=== PATIENT | female | born 1985 | race Two or more races ===

== ENCOUNTER 2019-10-30 10:17 | Inpatient (IN) | payer OTHER ==
[2019-10-30 10:40] VITALS: BMI 25.1
--- NOTE | 2019-10-30 11:04 | HP ---
COWS - Scale Resting Pulse: 0= ME 80 or Below Sweatin= Chills/Flushing Restless Observation: 1= Difficult to Sit Still Pupil Size: 1= Pupils >than Normal Bone or Joint Aches: 2= Severe Diffuse Aches Runny Nose/ Eye Tearin= Nasal Congestion GI Upset > 30mins: 2= Nausea/Diarrhea Tremor Observation: 2= Slight Tremor Visible Yawning Observation: 2= >3x During Session Anxiety or Irritability: 2=Irritable/Anxious Goose Flesh Skin: 0=Smooth Skin COWS Score: 14 CIWA Score - Admission Criteria [facility]ASAS Guidelines: Admission for Medically Managed Detox: Requires at least one of the followin. CIWA greater than 12 2. Seizures within the past 24 hours 3. Delirium tremens within the past 24 hours 4. Hallucinations within the past 24 hours 5. Acute intervention needed for co occurring medical disorder 6. Acute intervention needed for co occurring psychiatric disorder 7. Severe withdrawal that cannot be handled at a lower level of care (continued vomiting, continued diarrhea, abnormal vital signs) requiring intravenous medication and/or fluids 8. Admitting History and Physical - Admission Chief Complaint: i need help to stop using heroin History of Present Illness: this 34 years old female with heroin dependence,seeking detox,withdrawal symptom denied seizure denied syncope gerd last detox 2017 maría Limitations to Obtaining History: No Limitations - Past Medical History Gastrointestinal: Yes: GERD ...LMP: 09/18/19 ...: No - Smoking History Smoking history: Current every day smoker Have you smoked in the past 12 months: Yes Aproximately how many cigarettes per day: 14 - Alcohol/Substance Use Hx Alcohol Use: No History of Substance Use: reports: Heroin - Social History Usual Living Arrangement: Yes: Other (with cousin) Occupation: unemployed History of Recent Travel: No Admission ROS [facility] - [facility] Chief Complaint: i need help to stop using heroin Allergies/Adverse Reactions: Allergies Allergy/AdvReac Type Severity Reaction Status Date / Time No Known Allergies Allergy Verified 10/30/19 10:30 History of Present Illness: this 34 years old female with heroin dependence seeking detox,withdrawal symptom , denied seizure denied syncope nicotine dependence last detox 2017 maría no significant period of sobriety Exam Limitations: No Limitations - Ebola screening Have you traveled outside of the country in the last 21 days: No Have you had contact with anyone from an Ebola affected area: No Do you have a fever: No - Review of Systems Constitutional: Chills, Loss of Appetite, Malaise, Night Sweats, Changes in sleep, Weakness EENT: reports: No Symptoms Reported Respiratory: reports: No Symptoms reported Cardiac: reports: No Symptoms Reported GI: reports: Nausea, Poor Appetite, Abdominal cramping : reports: No Symptoms Reported Musculoskeletal: reports: Back Pain, Muscle Pain Integumentary: reports: Dryness Neuro: reports: Headache, Tremors Endocrine: reports: No Symptoms Reported Hematology: reports: No Symptoms Reported Psychiatric: reports: No Sypmtoms Reported, Judgement Intact, Mood/Affect Appropiate, Orientated x3 Other Systems: Reviewed and Negative Patient History - Patient Medical History Hx Anemia: No Hx Asthma: No Hx Chronic Obstructive Pulmonary Disease (COPD): No Hx Cancer: No Hx Cardiac Disorders: No Hx Congestive Heart Failure: No Hx Hypertension: No Hx Hypercholesterolemia: No Hx Pacemaker: No HX Cerebrovascular Accident: No Hx Seizures: No Hx Dementia: No Hx Liver Disease: No Hx Genitourinary Disorders: No Hx Sexually Transmitted Disorders: No Hx Renal Disease (ESRD): No Hx Thyroid Disease: No Hx Human Immunodeficiency Virus (HIV): No (04/22) Hx Hepatitis C: No Hx Depression: No Hx Suicide Attempt: No Hx Bipolar Disorder: No Hx Schizophrenia: No Other Medical History: no suicidal,no homicidal - Patient Surgical History Past Surgical History: No - PPD History Previous Implant?: Yes Documented Results: Negative w/o proof Implanted On Prior R Admission?: No PPD to be Administered?: Yes - Reproductive History Patient is a Female of Child Bearing Age (11 -55 yrs old): Yes Last Menstrual Period: 09/18/19 Patient : No - Smoking Cessation Smoking history: Current every day smoker Have you smoked in the past 12 months: Yes Aproximately how many cigarettes per day: 14 Cigars Per Day: 0 Hx Chewing Tobacco Use: No Initiated information on smoking cessation: Yes 'Breaking Loose' booklet given: 10/30/19 - Substance & Tx. History Hx Alcohol Use: No Hx Substance Use: Yes Substance Use Type: Heroin Hx Substance Use Treatment: Yes (2017) - Substances abused Heroin Substance route: Smoking Frequency: Daily Amount used: 13-15 bags Age of first use: 32 Date of last use: 10/30/19 Admission Physical Exam BHS - Vital Signs Vital Signs: Vital Signs - 24 hr 10/30/19 10:30 Temperature 97.6 F Pulse Rate 74 Respiratory 20 Rate Blood Pressure 95/63 - Physical General Appearance: Yes: Moderate Distress, Tremorous, Irritable, Sweating, Anxious HEENTM: Yes: Normal ENT Inspection, OSCAR, Pharynx Normal Respiratory: Yes: Within Normal Limits, Lungs Clear, Normal Breath Sounds Neck: Yes: Within Normal Limits, Supple, Trachea in good position Breast: Yes: Breast Exam Deferred Abdominal: Yes: Within Normal Limits, Normal Bowel Sounds, Non Tender, Flat, Soft Genitourinary: Yes: Within Normal Limits Back: Yes: Muscle Spasm Musculoskeletal: Yes: Back pain Extremities: Yes: Tremors Neurological: Yes: personnel interviewer II-XII NML intact, Fully Oriented, Alert, Motor Strength 5/5 Integumentary: Yes: Dry Lymphatic: Yes: Within Normal Limits - Diagnostic (1) Opioid dependence with withdrawal Current Visit: Yes Status: Acute (2) Nicotine dependence Current Visit: Yes Status: Acute (3) Chronic GERD Current Visit: Yes Status: Acute (4) Dehydration Current Visit: Yes Status: Acute Cleared for Admission [facility] - Detox or Rehab [facility] Level of Care: Medically Managed Detox Regimen/Protocol: Methadone Breathalyzer - Breathalyzer Breathalyzer: 0 Urine Drug Screen - Test Device Lot number: [id number] Expiration date: 06/03/21 - Control Is test valid?: Yes - Results Drug screen NEGATIVE: No Urine drug screen results: FEN-Fentanyl, MOP-Opiates, MTD-Methadone Inpatient Rehab Admission - Rehab Decision to Admit Inpatient rehab admission?: No
[2019-10-30] MEDS ORDERED: ACETAMINOPHEN 325 MG TABLET (FP) PO PRN ×2 (11:17)
[2019-10-30] MEDS ORDERED: MAGNESIUM HYDROX 2400MG/30ML ORAL SUSPENSION 30 ML CUP PO PRN (11:17)
[2019-10-30] MEDS ORDERED: IBUPROFEN 400 MG TABLET (FP) PO PRN (11:17)
[2019-10-30] MEDS ORDERED: cloNIDine HCL 0.1 MG TABLET PO PRN (11:17)
[2019-10-30] MEDS ORDERED: METHADONE HCL 10 MG TABLET (FOR DETOX USE ONLY) PO ONE (11:17)
[2019-10-30] MEDS ORDERED: MAGNESIUM CITRATE 300 ML BOTTLE PO PRN (11:17)
[2019-10-30] MEDS ORDERED: MENTHOL/PHENOL 1 EACH UD MM PRN (11:17)
[2019-10-30] MEDS: FAMOTIDINE 20 MG TABLET PO SCH (12:06)
--- NOTE | 2019-10-30 13:26 | EKG ---
Test Reason : Blood Pressure : / mmHG Vent. Rate : 067 BPM Atrial Rate : 067 BPM P-R Int : 140 ms QRS Dur : 066 ms QT Int : 396 ms P-R-T Axes : 027 074 039 degrees QTc Int : 418 ms NORMAL SINUS RHYTHM LOW VOLTAGE QRS NO PREVIOUS ECGS AVAILABLE Confirmed by LIZ ALEXANDRA MD ([id number]) on 10/30/2019 1:25:49 PM Referred By: Confirmed By:LIZ ALEXANDRA MD
[2019-10-30 14:47] LABS: HEMATOCRIT 39.6 % (32.4-45.2); MCH 29.1 pg (25.7-33.7); MCHC 32.9 g/dl (32.0-36.0); MEAN CELL VOLUME 88.4 fl (80-96); MEAN PLT VOLUME 10.1 fl (7.5-11.1); PLATELET COUNT 146 K/MM3 (134-434); RBC 4.48 M/mm3 (3.60-5.2); RDW 14.4 % (11.6-15.6)
[2019-10-30 14:51] LABS: ALBUMIN 3.9 g/dl (3.4-5.0); BILIRUBIN,TOTAL 0.4 mg/dL (0.2-1); CALCIUM 8.8 mg/dL (8.5-10.1); CREATININE 0.6 mg/dL (0.55-1.3); POTASSIUM 4.1 mmol/L (3.5-5.1); TOT PROT 7.3 g/dl (6.4-8.2)
[2019-10-30] MEDS: diazePAM 5 MG TABLET PO PRN ×2 (16:49→22:06)
[2019-10-30] MEDS: THIAMINE HCL 100 MG TABLET (FP) PO SCH (22:07)
[2019-10-30] MEDS: METHOCARBAMOL 500 MG TABLET PO PRN (23:36)
[2019-10-30] MEDS: MAG HYDROX/AL HYDROX/SIMETH 30 ML UNIT-DOSE CUP PO PRN (23:37)
[2019-10-30] MEDS ORDERED: PANTOPRAZOLE 40 MG TABLET PO ONE (23:43)
[2019-10-31] MEDS: diazePAM 5 MG TABLET PO PRN ×4 (03:49→21:46)
[2019-10-31] MEDS ORDERED: METHADONE HCL 10 MG TABLET (FOR DETOX USE ONLY) ONE (08:23)
[2019-10-31] MEDS ORDERED: METHADONE HCL 5 MG TABLET (FOR DETOX USE ONLY) ONE (08:24)
[2019-10-31] MEDS ORDERED: METHADONE (DETOX) 20 MG, METHADONE (DETOX) 5 MG PO ONE (10:00)
[2019-10-31] MEDS: FAMOTIDINE 20 MG TABLET PO SCH (10:17)
[2019-10-31] MEDS: PRENATAL VITAMINS W/ FOLIC ACID TABLET (FP) PO SCH (10:17)
--- NOTE | 2019-10-31 11:24 | PN ---
BHS COWS - Scale Resting Pulse: 0= [place] 80 or Below Sweatin= Beads of Sweat on Face Restless Observation: 1= Difficult to Sit Still Pupil Size: 0= Normal to Room Light Bone or Joint Aches: 2= Severe Diffuse Aches Runny Nose/ Eye Tearin= None GI Upset > 30mins: 0= None Tremor Observation of Outstretched Hands: 0= None Yawning Observation: 1= 1-2x During Session Anxiety or Irritability: 2=Irritable/Anxious Goose Flesh Skin: 0=Smooth Skin COWS Score: 9 S Progress Note (SOAP) Subjective: c/o irritability, anxiety, chills, sweats, and muscle aches. Objective: 10/31/19 11:23 Vital Signs 10/31/19 10/31/19 10/31/19 03:30 06:46 09:21 Temperature 97.7 F Pulse Rate 65 69 Respiratory 18 18 16 Rate Blood Pressure 96/47 L 104/59 L Laboratory Last Values WBC 9.0 K/mm3 (4.0-10.0) 10/30/19 11:35 RBC 4.48 M/mm3 (3.60-5.2) 10/30/19 11:35 Hgb 13.0 GM/dL (10.7-15.3) 10/30/19 11:35 Hct 39.6 % (32.4-45.2) 10/30/19 11:35 MCV 88.4 fl (80-96) 10/30/19 11:35 MCH 29.1 pg (25.7-33.7) 10/30/19 11:35 MCHC 32.9 g/dl (32.0-36.0) 10/30/19 11:35 RDW 14.4 % (11.6-15.6) 10/30/19 11:35 Plt Count 146 K/MM3 (134-434) 10/30/19 11:35 MPV 10.1 fl (7.5-11.1) 10/30/19 11:35 Sodium 138 mmol/L (136-145) 10/30/19 11:35 Potassium 4.1 mmol/L (3.5-5.1) 10/30/19 11:35 Chloride 108 mmol/L (98-107) H 10/30/19 11:35 Carbon Dioxide 25 mmol/L (21-32) 10/30/19 11:35 Anion Gap 6 MMOL/L (8-16) L 10/30/19 11:35 BUN 11.0 mg/dL (7-18) 10/30/19 11:35 Creatinine 0.6 mg/dL (0.55-1.3) 10/30/19 11:35 Est GFR (CKD-EPI)AfAm 139.78 10/30/19 11:35 Est GFR (CKD-EPI)NonAf 120.61 10/30/19 11:35 Random Glucose 86 mg/dL (74-106) 10/30/19 11:35 Calcium 8.8 mg/dL (8.5-10.1) 10/30/19 11:35 Total Bilirubin 0.4 mg/dL (0.2-1) 10/30/19 11:35 AST 20 U/L (15-37) 10/30/19 11:35 ALT 27 U/L (13-61) 10/30/19 11:35 Alkaline Phosphatase 92 U/L (45-117) 10/30/19 11:35 Total Protein 7.3 g/dl (6.4-8.2) 10/30/19 11:35 Albumin 3.9 g/dl (3.4-5.0) 10/30/19 11:35 RPR Titer Nonreactive (NONREACTIVE) 10/30/19 11:35 Labs noted. Assessment: 10/31/19 11:24 AOx3, in no acute respiratory distress. Full rom, ambulating in the unit. Withdrawal symptoms. Plan: continue detox.
[2019-10-31] MEDS ORDERED: FLU VACCINE QUAD 60 MCG/0.5 ML (MDV 19-20) IM ONE (12:00)
[2019-10-31] MEDS: MAG HYDROX/AL HYDROX/SIMETH 30 ML UNIT-DOSE CUP PO PRN (13:19)
[2019-10-31] MEDS: BISMUTH SUBSALICYLATE 524 MG/30 ML UD PO PRN (17:16)
[2019-10-31 17:44] LABS: PH,URINE 7.5 (5.0-8.0); URINE APPEARANCE CLEAR; URINE BILIRUBIN NEGATIVE (NEGATIVE); URINE COLOR YELLOW; URINE GLUCOSE (UA) NEGATIVE (NEGATIVE); URINE KETONE NEGATIVE (NEGATIVE); URINE LEUK ESTERASE NEGATIVE (NEGATIVE); URINE NITRITE NEGATIVE (NEGATIVE); URINE PROTEIN NEGATIVE (NEGATIVE); URINE UROBILINOGEN 0.2 mg/dL (0.2-1.0)
[2019-10-31] MEDS: NICOTINE POLACRILEX 2 MG GUM BUC PRN ×2 (18:59→21:47)
[2019-10-31] MEDS: THIAMINE HCL 100 MG TABLET (FP) PO SCH (21:46)
[2019-10-31] MEDS: MELATONIN 5 MG TABLETS PO PRN (21:47)
[2019-10-31] MEDS: METHOCARBAMOL 500 MG TABLET PO PRN (21:47)
[2019-11-01] MEDS: MELATONIN 5 MG TABLETS PO PRN ×2 (02:07→21:27)
[2019-11-01] MEDS: diazePAM 5 MG TABLET PO PRN ×4 (06:14→19:32)
[2019-11-01] MEDS: NICOTINE POLACRILEX 2 MG GUM BUC PRN ×2 (06:30→08:45)
[2019-11-01] MEDS ORDERED: METHADONE HCL 10 MG TABLET (FOR DETOX USE ONLY) PO ONE (10:00)
[2019-11-01] MEDS: FAMOTIDINE 20 MG TABLET PO SCH ×2 (10:18→21:27)
[2019-11-01] MEDS: PRENATAL VITAMINS W/ FOLIC ACID TABLET (FP) PO SCH (10:18)
[2019-11-01] MEDS: BISMUTH SUBSALICYLATE 524 MG/30 ML UD PO PRN ×2 (11:19→15:52)
[2019-11-01] MEDS ORDERED: LIDOCAINE VISCOUS 2% ORAL/TOP 20 ML UNIT-DOSE CUP MM PRN (11:27)
--- NOTE | 2019-11-01 11:30 | PN ---
BHS COWS - Scale Resting Pulse: 1= [place] 81-100 Sweatin= Chills/Flushing Restless Observation: 0= Sits Still Pupil Size: 1= Pupils >than Normal Bone or Joint Aches: 1= Mild Discomfort Runny Nose/ Eye Tearin= Nasal Congestion GI Upset > 30mins: 1= Stomach Cramp Tremor Observation of Outstretched Hands: 1= Tremor [place], Not Seen Yawning Observation: 0= None Anxiety or Irritability: 1=Feels Anxious/Irritable Goose Flesh Skin: 0=Smooth Skin COWS Score: 8 BHS Progress Note (SOAP) Subjective: 34 years old female admitted on 10/30/19 for opiate withdrawal sx management treating with methadone detox regimen ate breakfast tolerated food and fluid well c/o heart burn increase pepcid to 20 mg po bid c/o tooth ache right and left lower molars partial missing no bleeding no gum swell no trouble chewing food nor swallowing food but "sensitive and discomfort" libocaine MM topic tid prn discuss dental hygiene Objective: 11/01/19 11:33 Vital Signs Temperature 96.8 F L 11/01/19 09:08 Pulse Rate 87 11/01/19 09:08 Respiratory Rate 18 11/01/19 09:08 Blood Pressure 105/71 11/01/19 09:08 O2 Sat by Pulse Oximetry (%) Laboratory Last Values WBC 9.0 K/mm3 (4.0-10.0) 10/30/19 11:35 RBC 4.48 M/mm3 (3.60-5.2) 10/30/19 11:35 Hgb 13.0 GM/dL (10.7-15.3) 10/30/19 11:35 Hct 39.6 % (32.4-45.2) 10/30/19 11:35 MCV 88.4 fl (80-96) 10/30/19 11:35 MCH 29.1 pg (25.7-33.7) 10/30/19 11:35 MCHC 32.9 g/dl (32.0-36.0) 10/30/19 11:35 RDW 14.4 % (11.6-15.6) 10/30/19 11:35 Plt Count 146 K/MM3 (134-434) 10/30/19 11:35 MPV 10.1 fl (7.5-11.1) 10/30/19 11:35 Sodium 138 mmol/L (136-145) 10/30/19 11:35 Potassium 4.1 mmol/L (3.5-5.1) 10/30/19 11:35 Chloride 108 mmol/L (98-107) H 10/30/19 11:35 Carbon Dioxide 25 mmol/L (21-32) 10/30/19 11:35 Anion Gap 6 MMOL/L (8-16) L 10/30/19 11:35 BUN 11.0 mg/dL (7-18) 10/30/19 11:35 Creatinine 0.6 mg/dL (0.55-1.3) 10/30/19 11:35 Est GFR (CKD-EPI)AfAm 139.78 10/30/19 11:35 Est GFR (CKD-EPI)NonAf 120.61 10/30/19 11:35 Random Glucose 86 mg/dL (74-106) 10/30/19 11:35 Calcium 8.8 mg/dL (8.5-10.1) 10/30/19 11:35 Total Bilirubin 0.4 mg/dL (0.2-1) 10/30/19 11:35 AST 20 U/L (15-37) 10/30/19 11:35 ALT 27 U/L (13-61) 10/30/19 11:35 Alkaline Phosphatase 92 U/L (45-117) 10/30/19 11:35 Total Protein 7.3 g/dl (6.4-8.2) 10/30/19 11:35 Albumin 3.9 g/dl (3.4-5.0) 10/30/19 11:35 Urine Color Yellow 10/31/19 11:26 Urine Appearance Clear 10/31/19 11:26 Urine pH 7.5 (5.0-8.0) 10/31/19 11:26 Ur Specific [place] 1.005 (1.010-1.035) L 10/31/19 11:26 Urine Protein Negative (NEGATIVE) 10/31/19 11:26 Urine Glucose (UA) Negative (NEGATIVE) 10/31/19 11:26 Urine Ketones Negative (NEGATIVE) 10/31/19 11:26 Urine Blood Negative (NEGATIVE) 10/31/19 11:26 Urine Nitrite Negative (NEGATIVE) 10/31/19 11:26 Urine Bilirubin Negative (NEGATIVE) 10/31/19 11:26 Urine Urobilinogen 0.2 mg/dL (0.2-1.0) 10/31/19 11:26 Ur Leukocyte Esterase Negative (NEGATIVE) 10/31/19 11:26 POC Urine HCG, Qual Negative 10/30/19 11:26 RPR Titer Nonreactive (NONREACTIVE) 10/30/19 11:35 lab noted Assessment: 11/01/19 11:33 opiate withdrawal Plan: methadone regimen encourage 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
[2019-11-01] MEDS: NICOTINE 21 MG/24 HOURS TOPICAL PATCH TD SCH (12:25)
[2019-11-01] MEDS: THIAMINE HCL 100 MG TABLET (FP) PO SCH (21:26)
[2019-11-01] MEDS: hydrOXYzine PAMOATE 25 MG CAPSULE (FP) PO PRN (21:28)
[2019-11-02] MEDS: METHOCARBAMOL 500 MG TABLET PO PRN ×2 (00:04→15:25)
[2019-11-02] MEDS: diazePAM 5 MG TABLET PO PRN ×3 (00:04→09:45)
[2019-11-02] MEDS ORDERED: METHADONE HCL 5 MG TABLET (FOR DETOX USE ONLY) ONE (09:22)
[2019-11-02] MEDS ORDERED: METHADONE HCL 10 MG TABLET (FOR DETOX USE ONLY) ONE (09:22)
[2019-11-02] MEDS: MAG HYDROX/AL HYDROX/SIMETH 30 ML UNIT-DOSE CUP PO PRN ×2 (09:52→20:58)
[2019-11-02] MEDS ORDERED: METHADONE (DETOX) 10 MG, METHADONE (DETOX) 5 MG PO ONE (10:00)
[2019-11-02] MEDS: PRENATAL VITAMINS W/ FOLIC ACID TABLET (FP) PO SCH (10:08)
[2019-11-02] MEDS: FAMOTIDINE 20 MG TABLET PO SCH ×2 (10:09→22:11)
[2019-11-02] MEDS: NICOTINE 21 MG/24 HOURS TOPICAL PATCH TD SCH (10:11)
--- NOTE | 2019-11-02 11:50 | PN ---
BHS COWS - Scale Resting Pulse: 0= [place] 80 or Below Sweatin= Chills/Flushing Restless Observation: 0= Sits Still Pupil Size: 1= Pupils >than Normal Bone or Joint Aches: 1= Mild Discomfort Runny Nose/ Eye Tearin= Nasal Congestion GI Upset > 30mins: 1= Stomach Cramp Tremor Observation of Outstretched Hands: 1= Tremor [place], Not Seen Yawning Observation: 0= None Anxiety or Irritability: 1=Feels Anxious/Irritable Goose Flesh Skin: 0=Smooth Skin COWS Score: 7 BHS Progress Note (SOAP) Subjective: 34 years old female admitted on 10/30/19 for opiate withdrawal sx management treating with methadone detox regimen ate breakfast no trouble chewing swallowing food tolerated food and fluid well GERD feeling better ensure supplement limited conversation with staff encourage pickler helper narcan from pharmacy Objective: 11/02/19 11:52 Vital Signs Temperature 98.2 F 11/02/19 09:06 Pulse Rate 73 11/02/19 09:06 Respiratory Rate 18 11/02/19 09:06 Blood Pressure 93/59 L 11/02/19 09:06 O2 Sat by Pulse Oximetry (%) Laboratory Last Values WBC 9.0 K/mm3 (4.0-10.0) 10/30/19 11:35 RBC 4.48 M/mm3 (3.60-5.2) 10/30/19 11:35 Hgb 13.0 GM/dL (10.7-15.3) 10/30/19 11:35 Hct 39.6 % (32.4-45.2) 10/30/19 11:35 MCV 88.4 fl (80-96) 10/30/19 11:35 MCH 29.1 pg (25.7-33.7) 10/30/19 11:35 MCHC 32.9 g/dl (32.0-36.0) 10/30/19 11:35 RDW 14.4 % (11.6-15.6) 10/30/19 11:35 Plt Count 146 K/MM3 (134-434) 10/30/19 11:35 MPV 10.1 fl (7.5-11.1) 10/30/19 11:35 Sodium 138 mmol/L (136-145) 10/30/19 11:35 Potassium 4.1 mmol/L (3.5-5.1) 10/30/19 11:35 Chloride 108 mmol/L (98-107) H 10/30/19 11:35 Carbon Dioxide 25 mmol/L (21-32) 10/30/19 11:35 Anion Gap 6 MMOL/L (8-16) L 10/30/19 11:35 BUN 11.0 mg/dL (7-18) 10/30/19 11:35 Creatinine 0.6 mg/dL (0.55-1.3) 10/30/19 11:35 Est GFR (CKD-EPI)AfAm 139.78 10/30/19 11:35 Est GFR (CKD-EPI)NonAf 120.61 10/30/19 11:35 Random Glucose 86 mg/dL (74-106) 10/30/19 11:35 Calcium 8.8 mg/dL (8.5-10.1) 10/30/19 11:35 Total Bilirubin 0.4 mg/dL (0.2-1) 10/30/19 11:35 AST 20 U/L (15-37) 10/30/19 11:35 ALT 27 U/L (13-61) 10/30/19 11:35 Alkaline Phosphatase 92 U/L (45-117) 10/30/19 11:35 Total Protein 7.3 g/dl (6.4-8.2) 10/30/19 11:35 Albumin 3.9 g/dl (3.4-5.0) 10/30/19 11:35 Urine Color Yellow 10/31/19 11:26 Urine Appearance Clear 10/31/19 11:26 Urine pH 7.5 (5.0-8.0) 10/31/19 11:26 Ur Specific [place] 1.005 (1.010-1.035) L 10/31/19 11:26 Urine Protein Negative (NEGATIVE) 10/31/19 11:26 Urine Glucose (UA) Negative (NEGATIVE) 10/31/19 11:26 Urine Ketones Negative (NEGATIVE) 10/31/19 11:26 Urine Blood Negative (NEGATIVE) 10/31/19 11:26 Urine Nitrite Negative (NEGATIVE) 10/31/19 11:26 Urine Bilirubin Negative (NEGATIVE) 10/31/19 11:26 Urine Urobilinogen 0.2 mg/dL (0.2-1.0) 10/31/19 11:26 Ur Leukocyte Esterase Negative (NEGATIVE) 10/31/19 11:26 POC Urine HCG, Qual Negative 10/30/19 11:26 RPR Titer Nonreactive (NONREACTIVE) 10/30/19 11:35 lab noted encourage oral fluid Assessment: 11/02/19 11:52 opiate withdrawal Plan: methadone regimen
[2019-11-02] MEDS: hydrOXYzine PAMOATE 25 MG CAPSULE (FP) PO PRN (15:25)
[2019-11-02] MEDS: NICOTINE POLACRILEX 2 MG GUM BUC PRN ×2 (19:49→22:59)
[2019-11-02] MEDS: THIAMINE HCL 100 MG TABLET (FP) PO SCH (22:12)
[2019-11-02] MEDS: MELATONIN 5 MG TABLETS PO PRN (22:12)
[2019-11-03] MEDS: hydrOXYzine PAMOATE 25 MG CAPSULE (FP) PO PRN ×3 (01:27→17:03)
[2019-11-03] MEDS: METHOCARBAMOL 500 MG TABLET PO PRN (01:27)
--- NOTE | 2019-11-03 09:39 | PN ---
BHS COWS - Scale Resting Pulse: 0= [place] 80 or Below Sweatin= Chills/Flushing Restless Observation: 0= Sits Still Pupil Size: 0= Normal to Room Light Bone or Joint Aches: 1= Mild Discomfort Runny Nose/ Eye Tearin= None GI Upset > 30mins: 1= Stomach Cramp Tremor Observation of Outstretched Hands: 1= Tremor [place], Not Seen Yawning Observation: 0= None Anxiety or Irritability: 1=Feels Anxious/Irritable Goose Flesh Skin: 0=Smooth Skin COWS Score: 5 BHS Progress Note (SOAP) Subjective: 34 years old female admitted on 10/30/19 for opiate withdrawal sx management treating with methadone detox regimen slept through the night feeling better discussed medication assisted treatment program encourage picking up narcan from pharmacy Objective: 11/03/19 09:38 Vital Signs Temperature 97.8 F 11/03/19 09:10 Pulse Rate 72 11/03/19 09:10 Respiratory Rate 18 11/03/19 09:10 Blood Pressure 90/61 11/03/19 09:10 O2 Sat by Pulse Oximetry (%) Laboratory Last Values WBC 9.0 K/mm3 (4.0-10.0) 10/30/19 11:35 RBC 4.48 M/mm3 (3.60-5.2) 10/30/19 11:35 Hgb 13.0 GM/dL (10.7-15.3) 10/30/19 11:35 Hct 39.6 % (32.4-45.2) 10/30/19 11:35 MCV 88.4 fl (80-96) 10/30/19 11:35 MCH 29.1 pg (25.7-33.7) 10/30/19 11:35 MCHC 32.9 g/dl (32.0-36.0) 10/30/19 11:35 RDW 14.4 % (11.6-15.6) 10/30/19 11:35 Plt Count 146 K/MM3 (134-434) 10/30/19 11:35 MPV 10.1 fl (7.5-11.1) 10/30/19 11:35 Sodium 138 mmol/L (136-145) 10/30/19 11:35 Potassium 4.1 mmol/L (3.5-5.1) 10/30/19 11:35 Chloride 108 mmol/L (98-107) H 10/30/19 11:35 Carbon Dioxide 25 mmol/L (21-32) 10/30/19 11:35 Anion Gap 6 MMOL/L (8-16) L 10/30/19 11:35 BUN 11.0 mg/dL (7-18) 10/30/19 11:35 Creatinine 0.6 mg/dL (0.55-1.3) 10/30/19 11:35 Est GFR (CKD-EPI)AfAm 139.78 10/30/19 11:35 Est GFR (CKD-EPI)NonAf 120.61 10/30/19 11:35 Random Glucose 86 mg/dL (74-106) 10/30/19 11:35 Calcium 8.8 mg/dL (8.5-10.1) 10/30/19 11:35 Total Bilirubin 0.4 mg/dL (0.2-1) 10/30/19 11:35 AST 20 U/L (15-37) 10/30/19 11:35 ALT 27 U/L (13-61) 10/30/19 11:35 Alkaline Phosphatase 92 U/L (45-117) 10/30/19 11:35 Total Protein 7.3 g/dl (6.4-8.2) 10/30/19 11:35 Albumin 3.9 g/dl (3.4-5.0) 10/30/19 11:35 Urine Color Yellow 10/31/19 11:26 Urine Appearance Clear 10/31/19 11:26 Urine pH 7.5 (5.0-8.0) 10/31/19 11:26 Ur Specific [place] 1.005 (1.010-1.035) L 10/31/19 11:26 Urine Protein Negative (NEGATIVE) 10/31/19 11:26 Urine Glucose (UA) Negative (NEGATIVE) 10/31/19 11:26 Urine Ketones Negative (NEGATIVE) 10/31/19 11:26 Urine Blood Negative (NEGATIVE) 10/31/19 11:26 Urine Nitrite Negative (NEGATIVE) 10/31/19 11:26 Urine Bilirubin Negative (NEGATIVE) 10/31/19 11:26 Urine Urobilinogen 0.2 mg/dL (0.2-1.0) 10/31/19 11:26 Ur Leukocyte Esterase Negative (NEGATIVE) 10/31/19 11:26 POC Urine HCG, Qual Negative 10/30/19 10:52 RPR Titer Nonreactive (NONREACTIVE) 10/30/19 11:35 lab noted Assessment: 11/03/19 09:38 opiate withdrawal Plan: methadone regimen
[2019-11-03] MEDS ORDERED: METHADONE HCL 10 MG TABLET (FOR DETOX USE ONLY) PO ONE (10:00)
[2019-11-03] MEDS: NICOTINE 21 MG/24 HOURS TOPICAL PATCH TD SCH (10:15)
[2019-11-03] MEDS: FAMOTIDINE 20 MG TABLET PO SCH ×2 (10:15→22:17)
[2019-11-03] MEDS: PRENATAL VITAMINS W/ FOLIC ACID TABLET (FP) PO SCH (10:15)
[2019-11-03] MEDS: MAG HYDROX/AL HYDROX/SIMETH 30 ML UNIT-DOSE CUP PO PRN (13:13)
[2019-11-03] MEDS: NICOTINE POLACRILEX 2 MG GUM BUC PRN ×2 (13:14→22:19)
[2019-11-03] MEDS ORDERED: SULFAMETHOXAZOLE/TRIMETHOPRIM 800MG/160MG D.S. TABLET PO ONE (17:39)
--- NOTE | 2019-11-03 17:42 | PN ---
BHS Progress Note Note: Ucx- pos for Ecoli. Pt c/o of dysuria. Vital Signs - 24 hr 11/02/19 11/03/19 11/03/19 22:04 00:30 03:30 Temperature 96.4 F L Pulse Rate 73 Respiratory 16 18 16 Rate Blood Pressure 92/61 11/03/19 11/03/19 11/03/19 06:06 09:10 13:07 Temperature 97.8 F 97.8 F 98.7 F Pulse Rate 59 L 72 83 Respiratory 18 18 18 Rate Blood Pressure 90/51 L 90/61 90/57 L 11/03/19 17:27 Temperature 98.3 F Pulse Rate 88 Respiratory 18 Rate Blood Pressure 104/64 a/p: UTI- start treatment with bactrim- discharge meds for 5 more days OUD- d/w pt importance of exterminator helper MAT- suboxone/methadone. f/u [facility] or [facility] PCP
[2019-11-03] MEDS: THIAMINE HCL 100 MG TABLET (FP) PO SCH (22:16)
[2019-11-03] MEDS: SULFAMETHOXAZOLE/TRIMETHOPRIM 800MG/160MG D.S. TABLET PO SCH (22:17)
[2019-11-03] MEDS: MELATONIN 5 MG TABLETS PO PRN (22:17)
[2019-11-04] MEDS: hydrOXYzine PAMOATE 25 MG CAPSULE (FP) PO PRN (02:33)
[2019-11-04] MEDS: METHOCARBAMOL 500 MG TABLET PO PRN (02:33)
[2019-11-04] MEDS ORDERED: METHADONE HCL 5 MG TABLET (FOR DETOX USE ONLY) PO ONE (06:00)
[2019-11-04 06:41] VITALS: BP 96/61; PULSE 63; TEMP 97.2
[2019-11-04] MEDS: SULFAMETHOXAZOLE/TRIMETHOPRIM 800MG/160MG D.S. TABLET PO SCH (09:17)
[2019-11-04] MEDS: NICOTINE 21 MG/24 HOURS TOPICAL PATCH TD SCH (09:17)
[2019-11-04] MEDS: PRENATAL VITAMINS W/ FOLIC ACID TABLET (FP) PO SCH (09:17)
[2019-11-04] MEDS: FAMOTIDINE 20 MG TABLET PO SCH (09:17)
--- NOTE | 2019-11-04 12:31 | DS ---
[facility] Detox Discharge Summary Admission Date: 10/30/19 Discharge Date: 11/04/19 - History Present History: Opioid Dependence Additional Comments: 34 years old female admitted on 10/30/19 for opiate withdrawal sx management treated with methadone detox regimen patient tolerated well alert oriented x 3 cardiac s1s2 regular rate rhyth respiratory clear lungs bilaterally on auscultation extremities full range of motion - Physical Exam Results Vital Signs: Vital Signs Temperature 97.2 F L 11/04/19 06:40 Pulse Rate 63 11/04/19 06:40 Respiratory Rate 18 11/04/19 06:40 Blood Pressure 96/61 11/04/19 06:40 O2 Sat by Pulse Oximetry (%) Pertinent Admission Physical Exam Findings: opiate withdrawal Laboratory Last Values WBC 9.0 K/mm3 (4.0-10.0) 10/30/19 11:35 RBC 4.48 M/mm3 (3.60-5.2) 10/30/19 11:35 Hgb 13.0 GM/dL (10.7-15.3) 10/30/19 11:35 Hct 39.6 % (32.4-45.2) 10/30/19 11:35 MCV 88.4 fl (80-96) 10/30/19 11:35 MCH 29.1 pg (25.7-33.7) 10/30/19 11:35 MCHC 32.9 g/dl (32.0-36.0) 10/30/19 11:35 RDW 14.4 % (11.6-15.6) 10/30/19 11:35 Plt Count 146 K/MM3 (134-434) 10/30/19 11:35 MPV 10.1 fl (7.5-11.1) 10/30/19 11:35 Sodium 138 mmol/L (136-145) 10/30/19 11:35 Potassium 4.1 mmol/L (3.5-5.1) 10/30/19 11:35 Chloride 108 mmol/L (98-107) H 10/30/19 11:35 Carbon Dioxide 25 mmol/L (21-32) 10/30/19 11:35 Anion Gap 6 MMOL/L (8-16) L 10/30/19 11:35 BUN 11.0 mg/dL (7-18) 10/30/19 11:35 Creatinine 0.6 mg/dL (0.55-1.3) 10/30/19 11:35 Est GFR (CKD-EPI)AfAm 139.78 10/30/19 11:35 Est GFR (CKD-EPI)NonAf 120.61 10/30/19 11:35 Random Glucose 86 mg/dL (74-106) 10/30/19 11:35 Calcium 8.8 mg/dL (8.5-10.1) 10/30/19 11:35 Total Bilirubin 0.4 mg/dL (0.2-1) 10/30/19 11:35 AST 20 U/L (15-37) 10/30/19 11:35 ALT 27 U/L (13-61) 10/30/19 11:35 Alkaline Phosphatase 92 U/L (45-117) 10/30/19 11:35 Total Protein 7.3 g/dl (6.4-8.2) 10/30/19 11:35 Albumin 3.9 g/dl (3.4-5.0) 10/30/19 11:35 Urine Color Yellow 10/31/19 11:26 Urine Appearance Clear 10/31/19 11:26 Urine pH 7.5 (5.0-8.0) 10/31/19 11:26 Ur Specific [place] 1.005 (1.010-1.035) L 10/31/19 11:26 Urine Protein Negative (NEGATIVE) 10/31/19 11:26 Urine Glucose (UA) Negative (NEGATIVE) 10/31/19 11:26 Urine Ketones Negative (NEGATIVE) 10/31/19 11:26 Urine Blood Negative (NEGATIVE) 10/31/19 11:26 Urine Nitrite Negative (NEGATIVE) 10/31/19 11:26 Urine Bilirubin Negative (NEGATIVE) 10/31/19 11:26 Urine Urobilinogen 0.2 mg/dL (0.2-1.0) 10/31/19 11:26 Ur Leukocyte Esterase Negative (NEGATIVE) 10/31/19 11:26 POC Urine HCG, Qual Negative 10/30/19 10:52 RPR Titer Nonreactive (NONREACTIVE) 10/30/19 11:35 lab noted - Treatment Hospital Course: Detox Protocol Followed, Detoxed Safely, Responded well, Discharged Condition Good, Rehab Referral Accepted Patient has Accepted a Rehab Referral to: medication assised treatment program - Medication Discharge Medications: Ambulatory Orders Omeprazole 20 mg PO DAILY 10/30/19 Naloxone HCl [Narcan] 4 mg NS ASDIR PRN #1 spray 11/01/19 Sulfamethoxazole/Trimethoprim [Bactrim DS -] 1 each PO BID 5 Days #10 tablet - Diagnosis (1) Chronic GERD Status: Chronic (2) Nicotine dependence Status: Acute Qualifiers: Nicotine product type: cigarettes Substance use status: in withdrawal Qualified Code(s): F17.213 - Nicotine dependence, cigarettes, with withdrawal (3) Opioid dependence with withdrawal Status: Acute - AMA Did Patient Leave Against Medical Advice: No COWS (PN) - Opiate Withdrawal Resting Pulse: 0= [place] 80 or Below Sweatin= No chills or Flushing Restless Observation: 0= Sits Still Pupil Size: 0= Normal to Room Light Bone or Joint Aches: 1= Mild Discomfort Runny Nose/ Eye Tearin= None GI Upset > 30mins: 0= None Tremor Observation of Outstretched Hands: 0= None Yawning Observation: 0= None Anxiety or Irritability: 1=Feels Anxious/Irritable Goose Flesh Skin: 0=Smooth Skin COWS Score: 2
== END 2019-11-04 09:18 | disposition home or self-care (01) | DRG 773 ==
LOC: YASAS 10:17 → Y3N 11:25
PROVIDERS: ADMIT Allergy & Immunology; ATTEND Allergy & Immunology
PROC: HZ2ZZZZ Detoxification Services for Substance Abuse Treatment (ICD-10-PCS; principal; 2019-10-30)
DX: F11.23 Opioid dependence with withdrawal (principal); F17.213 Nicotine dependence, cigarettes, with withdrawal; K21.9 Gastro-esophageal reflux disease without esophagitis; N39.0 Urinary tract infection, site not specified; E86.0 Dehydration; K08.89 Other specified disorders of teeth and supporting structures
CPT/HCPCS: 36415; 80053; 81003; 81025; 85027; 86593; 87086; 87186; 93005; 93010; G0008; Q2036

== ENCOUNTER 2019-11-17 11:21 | Inpatient (IN) | payer OTHER ==
[2019-11-17 12:06] VITALS: BMI 23.6
--- NOTE | 2019-11-17 14:35 | HP ---
"COWS - Scale Resting Pulse: 1= [place] 81-100 Sweatin=Flushed/Facial Moisture Restless Observation: 3= Extraneous Movement Pupil Size: 0= Normal to Room Light Bone or Joint Aches: 0= None Runny Nose/ Eye Tearin= Nasal Congestion GI Upset > 30mins: 1= Stomach Cramp Tremor Observation: 0= None Yawning Observation: 0= None Anxiety or Irritability: 2=Irritable/Anxious Goose Flesh Skin: 0=Smooth Skin COWS Score: 10 CIWA Score - Admission Criteria OASAS Guidelines: Admission for Medically Managed Detox: Requires at least one of the followin. CIWA greater than 12 2. Seizures within the past 24 hours 3. Delirium tremens within the past 24 hours 4. Hallucinations within the past 24 hours 5. Acute intervention needed for co occurring medical disorder 6. Acute intervention needed for co occurring psychiatric disorder 7. Severe withdrawal that cannot be handled at a lower level of care (continued vomiting, continued diarrhea, abnormal vital signs) requiring intravenous medication and/or fluids 8. Admitting History and Physical - Past Medical History Gastrointestinal: Yes: GERD ...LMP: 09/18/19 - Smoking History Smoking history: Current every day smoker Have you smoked in the past 12 months: Yes Aproximately how many cigarettes per day: 14 - Alcohol/Substance Use Hx Alcohol Use: No History of Substance Use: reports: Heroin - Social History Occupation: unemployed History of Recent Travel: No Admission [facility] Allergies/Adverse Reactions: Allergies Allergy/AdvReac Type Severity Reaction Status Date / Time No Known Allergies Allergy Verified 11/17/19 11:54 History of Present Illness: Search Terms: most jackson, 1985 Search Date: 11/17/2019 02:29:22 PM The Drug Utilization Report below displays all of the controlled substance prescriptions, if any, that your patient has filled in the last twelve months. The information displayed on this report is compiled from pharmacy submissions to the Department, and accurately reflects the information as submitted by the pharmacies. This report was requested by: June Howard | Reference #: [id number] There are no results for the search terms that you entered. pt here requesting detox from heroin use , reports 12-15 bags/day via smoking , denies OD , reports x 1.5 yrs , latest use today . denies MMTP PMHX : denies PSHX : denies LMP 3 days ago Exam Limitations: No Limitations - Ebola screening Have you traveled outside of the country in the last 21 days: No (NN) Have you had contact with anyone from an Ebola affected area: No Do you have a fever: No - Review of Systems Constitutional: Loss of Appetite EENT: reports: No Symptoms Reported Respiratory: reports: SOB with Exertion (with heroin use) Cardiac: reports: No Symptoms Reported GI: reports: Poor Appetite : reports: No Symptoms Reported Musculoskeletal: reports: No Symptoms Reported Integumentary: reports: No Symptoms Reported Neuro: reports: Headache Endocrine: reports: No Symptoms Reported Psychiatric: reports: Agitated, Anxious Patient History - Patient Medical History Hx Anemia: No Hx Asthma: No Hx Chronic Obstructive Pulmonary Disease (COPD): No Hx Cancer: No Hx Cardiac Disorders: No Hx Congestive Heart Failure: No Hx Hypertension: No Hx Hypercholesterolemia: No Hx Pacemaker: No HX Cerebrovascular Accident: No Hx Seizures: No Hx Dementia: No Hx Diabetes: No Hx Gastrointestinal Disorders: No Hx Liver Disease: No Hx Genitourinary Disorders: No Hx Sexually Transmitted Disorders: No Hx Renal Disease (ESRD): No Hx Thyroid Disease: No Hx Human Immunodeficiency Virus (HIV): No (04/22) Hx Hepatitis C: No Hx Depression: No Hx Suicide Attempt: No Hx Bipolar Disorder: No Hx Schizophrenia: No - Patient Surgical History Past Surgical History: No - PPD History Date: 11/01/19 - Reproductive History Last Menstrual Period: 09/18/19 - Smoking Cessation Smoking history: Current every day smoker Have you smoked in the past 12 months: Yes Aproximately how many cigarettes per day: 14 Cigars Per Day: 0 Hx Chewing Tobacco Use: No Initiated information on smoking cessation: No - Substances abused Heroin Substance route: Smoking Frequency: Daily Amount used: 10-12 bags Age of first use: 32 Date of last use: 11/17/19 Admission Physical Exam BHS - Vital Signs Vital Signs: Vital Signs - 24 hr 11/17/19 11:54 Temperature 98.8 F Pulse Rate 89 Respiratory 20 Rate Blood Pressure 129/87 - Physical General Appearance: Yes: Mild Distress, Anxious HEENTM: Yes: EOMI, Hearing grossly Normal, Normocephalic, Normal Voice Respiratory: Yes: Chest Non-Tender, Lungs Clear, Normal Breath Sounds, No Respiratory Distress, No Accessory Muscle Use Neck: Yes: No masses,lesions,Nodules, Trachea in good position Cardiology: Yes: Regular Rhythm, Regular Rate, S1, S2, Other (QTC 418 ms on ) Abdominal: Yes: Non Tender, Soft Back: Yes: Normal Inspection Musculoskeletal: Yes: Gait Steady Extremities: Yes: Normal Range of Motion, Non-Tender Neurological: Yes: Fully Oriented, Alert, Motor Strength 5/5, Depressed Affect Integumentary: Yes: Warm - Diagnostic (1) Nicotine dependence Current Visit: Yes Status: Chronic Qualifiers: Nicotine product type: cigarettes (2) Opioid dependence with withdrawal Current Visit: Yes Status: Chronic Breathalyzer - Breathalyzer Breathalyzer: 0 Urine Drug Screen - Test Device Lot number: [id number] Expiration date: 06/03/21 - Control Is test valid?: Yes - Results Drug screen NEGATIVE: No Urine drug screen results: FEN-Fentanyl, MOP-Opiates, MTD-Methadone, BZO- Benzodiazepines Inpatient Rehab Admission - Rehab Decision to Admit Inpatient rehab admission?: No"
[2019-11-17] MEDS ORDERED: IBUPROFEN 400 MG TABLET (FP) PO PRN (14:54)
[2019-11-17] MEDS ORDERED: MENTHOL/PHENOL 1 EACH UD MM PRN (14:54)
[2019-11-17] MEDS ORDERED: BISMUTH SUBSALICYLATE 524 MG/30 ML UD PO PRN (14:54)
[2019-11-17] MEDS ORDERED: MAGNESIUM HYDROX 2400MG/30ML ORAL SUSPENSION 30 ML CUP PO PRN (14:54)
[2019-11-17] MEDS ORDERED: ACETAMINOPHEN 325 MG TABLET (FP) PO PRN ×2 (14:54)
[2019-11-17] MEDS ORDERED: MAGNESIUM CITRATE 300 ML BOTTLE PO PRN (14:54)
[2019-11-17] MEDS ORDERED: cloNIDine HCL 0.1 MG TABLET PO PRN (14:55)
[2019-11-17] MEDS: hydrOXYzine PAMOATE 25 MG CAPSULE (FP) PO PRN (15:56)
[2019-11-17] MEDS ORDERED: METHADONE HCL 10 MG TABLET (FOR DETOX USE ONLY) PO ONE (18:00)
[2019-11-17] MEDS: MELATONIN 5 MG TABLETS PO PRN (21:46)
[2019-11-17] MEDS: THIAMINE HCL 100 MG TABLET (FP) PO SCH (21:47)
[2019-11-18] MEDS: hydrOXYzine PAMOATE 25 MG CAPSULE (FP) PO PRN (04:35)
[2019-11-18] MEDS: MAG HYDROX/AL HYDROX/SIMETH 30 ML UNIT-DOSE CUP PO PRN ×2 (09:00→17:32)
[2019-11-18] MEDS ORDERED: METHADONE HCL 5 MG TABLET (FOR DETOX USE ONLY) PO ONE (10:00)
[2019-11-18] MEDS: PANTOPRAZOLE 20 MG TABLET PO SCH (10:28)
[2019-11-18] MEDS: PRENATAL VITAMINS W/ FOLIC ACID TABLET (FP) PO SCH (10:28)
--- NOTE | 2019-11-18 11:46 | PN ---
B[facility] COWS - Scale Resting Pulse: 0= [place] 80 or Below Sweatin= Chills/Flushing Restless Observation: 1= Difficult to Sit Still Pupil Size: 0= Normal to Room Light Bone or Joint Aches: 2= Severe Diffuse Aches Runny Nose/ Eye Tearin= Nasal Congestion GI Upset > 30mins: 1= Stomach Cramp Tremor Observation of Outstretched Hands: 2= Slight Tremor Visible Yawning Observation: 1= 1-2x During Session Anxiety or Irritability: 2=Irritable/Anxious Goose Flesh Skin: 0=Smooth Skin COWS Score: 11 S Progress Note (SOAP) Subjective: stomach cramping sweats shakes irritable restless insomnia Objective: 11/18/19 11:44 Vital Signs Temperature 97.7 F 11/18/19 06:00 Pulse Rate 64 11/18/19 06:00 Respiratory Rate 18 11/18/19 06:00 Blood Pressure 133/61 11/18/19 06:00 O2 Sat by Pulse Oximetry (%) Laboratory Tests 11/17/19 14:05 POC Urine HCG, Qual Negative rest of labs pending aaox3 ambulating no acute distress Assessment: 11/18/19 11:45 withdrawals Plan: continue detox increase fluids roboxin prn valium 10mg q4hr prn x 3 days trazadone 50mg qhs while in detox
[2019-11-18] MEDS: traZODone HCL 50 MG TABLET (FP) PO SCH (22:41)
[2019-11-18] MEDS: THIAMINE HCL 100 MG TABLET (FP) PO SCH (22:41)
[2019-11-19] MEDS: MAG HYDROX/AL HYDROX/SIMETH 30 ML UNIT-DOSE CUP PO PRN (06:42)
[2019-11-19] MEDS ORDERED: METHADONE HCL 10 MG TABLET (FOR DETOX USE ONLY) PO ONE (10:00)
[2019-11-19] MEDS: PANTOPRAZOLE 20 MG TABLET PO SCH (10:36)
[2019-11-19] MEDS: PRENATAL VITAMINS W/ FOLIC ACID TABLET (FP) PO SCH (10:37)
[2019-11-19] MEDS: METHOCARBAMOL 500 MG TABLET PO PRN ×2 (10:37→22:40)
[2019-11-19] MEDS: diazePAM 5 MG TABLET PO PRN ×3 (11:38→22:39)
--- NOTE | 2019-11-19 11:50 | PN ---
BHS COWS - Scale Resting Pulse: 0= [place] 80 or Below Sweatin= Chills/Flushing Restless Observation: 1= Difficult to Sit Still Pupil Size: 0= Normal to Room Light Bone or Joint Aches: 1= Mild Discomfort Runny Nose/ Eye Tearin= None GI Upset > 30mins: 0= None Tremor Observation of Outstretched Hands: 0= None Yawning Observation: 0= None Anxiety or Irritability: 1=Feels Anxious/Irritable Goose Flesh Skin: 0=Smooth Skin COWS Score: 4 BHS Progress Note (SOAP) Subjective: restless shakes Objective: 11/19/19 11:50 Vital Signs Temperature 97.2 F L 11/19/19 10:00 Pulse Rate 58 L 11/19/19 10:00 Respiratory Rate 17 11/19/19 10:00 Blood Pressure 96/72 11/19/19 10:00 O2 Sat by Pulse Oximetry (%) Laboratory Tests 11/17/19 14:05 POC Urine HCG, Qual Negative aaox3 ambulating no acute distress Assessment: 11/19/19 11:51 withdrawals Plan: continue detox increase fluids d/c in am
[2019-11-19] MEDS: traZODone HCL 50 MG TABLET (FP) PO SCH (22:37)
[2019-11-19] MEDS: THIAMINE HCL 100 MG TABLET (FP) PO SCH (22:37)
[2019-11-19] MEDS: MELATONIN 5 MG TABLETS PO PRN (22:39)
[2019-11-20] MEDS ORDERED: METHADONE HCL 5 MG TABLET (FOR DETOX USE ONLY) PO ONE (06:00)
[2019-11-20] MEDS: METHOCARBAMOL 500 MG TABLET PO PRN (06:22)
[2019-11-20 06:31] VITALS: TEMP 98.1
--- NOTE | 2019-11-20 08:24 | DS ---
[facility] Detox Discharge Summary Admission Date: 11/17/19 Discharge Date: 11/20/19 - History Present History: Opioid Dependence - Physical Exam Results Vital Signs: Vital Signs Temperature 98.1 F 11/20/19 06:30 Pulse Rate 56 L 11/20/19 06:30 Respiratory Rate 18 11/20/19 06:30 Blood Pressure 113/60 11/20/19 06:30 O2 Sat by Pulse Oximetry (%) Pertinent Admission Physical Exam Findings: Vital Signs Temperature 98.1 F 11/20/19 06:30 Pulse Rate 56 L 11/20/19 06:30 Respiratory Rate 18 11/20/19 06:30 Blood Pressure 113/60 11/20/19 06:30 O2 Sat by Pulse Oximetry (%) Laboratory Tests 11/17/19 14:05 POC Urine HCG, Qual Negative aaox3 ambulating no acute distress - Treatment Hospital Course: Detox Protocol Followed, Detoxed Safely, Responded well, Discharged Condition Good, Rehab Referral Accepted Patient has Accepted a Rehab Referral to: referred to [facility] - Medication Discharge Medications: Ambulatory Orders Omeprazole 20 mg PO DAILY 10/30/19 - Diagnosis (1) Nicotine dependence Current Visit: Yes Status: Chronic Qualifiers: Nicotine product type: cigarettes Substance use status: uncomplicated Qualified Code(s): F17.210 - Nicotine dependence, cigarettes, uncomplicated (2) Opioid dependence with withdrawal Current Visit: Yes Status: Chronic (3) Chronic GERD Current Visit: Yes Status: Chronic - AMA Did Patient Leave Against Medical Advice: No
[2019-11-20 09:43] VITALS: BP 119/67; PULSE 81
== END 2019-11-20 09:31 | disposition home or self-care (01) | DRG 773 ==
LOC: YASAS 11:21 → Y6N 14:59
PROVIDERS: ADMIT Allergy & Immunology; ATTEND Allergy & Immunology
PROC: HZ2ZZZZ Detoxification Services for Substance Abuse Treatment (ICD-10-PCS; principal; 2019-11-17)
DX: F11.23 Opioid dependence with withdrawal (principal); F17.210 Nicotine dependence, cigarettes, uncomplicated; K21.9 Gastro-esophageal reflux disease without esophagitis
CPT/HCPCS: 81025; J0735